=== PATIENT | female | born 1995 | race Caucasian/White ===

== ENCOUNTER 2018-10-08 13:05 | Emergency (ER) | payer OTHER ==
[~2018-10-08] VITALS: Ht 160 cm; Wt 74.6 kg
[~2018-10-08 13:05] MED LIST: AMOX/K CLA400 MG/5 M OR; AMOXICILLIN500 MG OR; AUGMENTIN875 MG OR; FLOXIN OTIC0.3 % OT; TRIAMINI4 OR; ZYRTEC10 MG OR
[2018-10-08 14:30] LABS: URINE BILIRUBIN - DIPSTICK NEGATIVE (NEGATIVE); URINE BLOOD DIPSTICK NEGATIVE (NEGATIVE); URINE COLOR YELLOW; URINE GLUCOSE - DIPSTICK NEGATIVE (NEGATIVE); URINE KETONE NEGATIVE (NEGATIVE); URINE LEUK ESTERASE NEGATIVE (NEGATIVE); URINE NITRITE - DIPSTICK NEGATIVE (Negative); URINE PH 7.5 (4.5-8.0); URINE PROTEIN - DIPSTICK NEGATIVE (NEG-TRACE); URINE SPECIFIC GRAVITY 1.015; URINE UROBILINOGEN - DIPSTICK 0.2 E.U./dL (0.2)
[2018-10-08 15:07] LABS: ALKALINE PHOSPHATASE 69 u/l (38-126); BILIRUBIN, TOTAL 0.4 mg/dL (0.0-1.4); BUN 9 mg/dL (7-17); BUN/CREATININE RATIO 12 (12-20 (CALC)); CHLORIDE 104 mmol/l (95-108); CREATININE 0.8 mg/dL (0.5-1.0); GFR > 60 ML/MIN (>=60 (CALC)); GFR FOR AFR.AMER. > 60 ML/MIN (>=60 (CALC)); LIPASE 49 u/l (23-300); SGOT/AST 44 u/l (14-36); SODIUM 140 mmol/l (137-146); TOTAL PROTEIN 7.5 g/dL (6.3-8.2)
[2018-10-08 15:11] LABS: ALBUMIN 4.7 g/dL (3.2-5.0); ANION GAP 14 (6-22 (CALC)); CARBON DIOXIDE 26 mmol/l (22-30); POTASSIUM 4.2 mmol/l (3.5-5.1)
[2018-10-08 15:27] LABS: HEMATOCRIT 40.6 % (37.0-47.0); HEMOGLOBIN 13.4 g/dl (12.0-16.0); IMMATURE GRANULOCYTES 0.2 % (0.0-5.0); MEAN CORPUSCULAR HGB 28.8 pG CALC (26.0-32.0); NEUT# 5.98 thou/uL (2.00-7.15); RED BLOOD COUNT 4.65 mill/uL (4.20-5.60); RED CELL DISTRI WIDTH 13.5 % (11.5-15.5)
[2018-10-08 15:29] LABS: MEAN CELL VOLUME 87.3 fL CALC (80.0-100.0)
[2018-10-08 16:51] VITALS: BP 129/82
[2018-10-08] MEDS ORDERED: ONDANSETRON4 MG PO (16:51)
[2018-10-08] MEDS ORDERED: RANITIDINE150 M1 PO (16:51)
== END 2018-10-08 17:01 | disposition home or self-care (01) | DRG 392 ==
LOC: ED 13:05
PROVIDERS: Family Medicine
DX: R10.13 Epigastric pain (principal); R07.89 Other chest pain; J45.909 Unspecified asthma, uncomplicated
CPT/HCPCS: Q9967

== ENCOUNTER 2019-06-22 | Emergency (ER) | payer OTHER ==
[~2019-06-22] MED LIST changes: +ONDANSETRON4 MG PO; +RANITIDINE150 M1 PO
[2019-06-22 14:16] LABS: URINE BILIRUBIN - DIPSTICK NEGATIVE (NEGATIVE); URINE BLOOD DIPSTICK NEGATIVE (NEGATIVE); URINE CLARITY CLEAR; URINE COLOR YELLOW; URINE GLUCOSE - DIPSTICK NEGATIVE (NEGATIVE); URINE KETONE NEGATIVE (NEGATIVE); URINE LEUK ESTERASE NEGATIVE (Negative); URINE NITRITE - DIPSTICK NEGATIVE (Negative); URINE PROTEIN - DIPSTICK NEGATIVE (NEG-TRACE); URINE SPECIFIC GRAVITY >=1.030
[2019-06-22] MEDS ORDERED: FLEXERIL PO (15:18)
[2019-06-22] MEDS ORDERED: IBUPROFEN600 MG PO (15:18)
== END 2019-06-22 15:55 | disposition home or self-care (01) | DRG 605 ==
DX: S00.03XA Contusion of scalp, initial encounter (principal); S39.012A Strain of muscle, fascia and tendon of lower back, initial encounter; S80.02XA Contusion of left knee, initial encounter; S93.401A Sprain of unspecified ligament of right ankle, initial encounter; S16.1XXA Strain of muscle, fascia and tendon at neck level, initial encounter; V48.0XXA Car driver injured in noncollision transport accident in nontraffic accident, initial encounter

== ENCOUNTER 2022-09-21 14:17 | Emergency (ER) | payer OTHER ==
[~2022-09-21] VITALS: Ht 160 cm; Wt 70.0 kg
[~2022-09-21 14:17] MED LIST changes: +FLEXERIL PO; +IBUPROFEN600 MG PO
[2022-09-21 14:31] VITALS: BP 106/69
[2022-09-21 14:56] LABS: BASO% 0.1 % (0-3); EOS% 0.2 % (0-8); HEMATOCRIT 35.5 % (37.0-47.0); HEMOGLOBIN 11.5 g/dl (12.0-16.0); IMMATURE GRANULOCYTES 0.7 % (0.0-5.0); LYMPH% 4.4 % (15-41); MEAN CELL VOLUME 82.4 fL CALC (80.0-100.0); MEAN CORPUSCULAR HGB 26.7 pG CALC (26.0-32.0); MEAN CORPUSCULAR HGB CONC 32.4 g/dL CAL (32.0-36.0); MONO% 2.8 % (2-13); NEUT# 13.08 thou/uL (2.00-7.15); NEUT% 91.8 % (42-76); RED BLOOD COUNT 4.31 mill/uL (4.20-5.60); RED CELL DISTRI WIDTH 12.2 % (11.5-15.5); URINE BILIRUBIN - DIPSTICK NEGATIVE (NEGATIVE); URINE BLOOD DIPSTICK NEGATIVE (NEGATIVE); URINE COLOR YELLOW; URINE GLUCOSE - DIPSTICK NEGATIVE (NEGATIVE); URINE KETONE 40 mg/dL (NEGATIVE); URINE LEUK ESTERASE NEGATIVE (NEGATIVE); URINE NITRITE - DIPSTICK NEGATIVE (Negative); URINE PH 6.5 (4.5-8.0); URINE PROTEIN - DIPSTICK NEGATIVE (NEG-TRACE); URINE UROBILINOGEN - DIPSTICK 0.2 E.U./dL (0.2)
[2022-09-21 15:08] LABS: ALBUMIN 3.8 g/dL (3.2-5.0); ALKALINE PHOSPHATASE 77 u/l (38-126); ANION GAP 9 (6-22 (CALC)); BILIRUBIN, TOTAL 0.3 mg/dL (0.02-1.3); BUN 7 mg/dL (7-17); BUN/CREATININE RATIO 17 (12-20 (CALC)); CARBON DIOXIDE 21 mmol/l (22-30); CHLORIDE 107 mmol/l (95-108); CREATININE 0.4 mg/dL (0.5-1.0); GFR FOR AFR.AMER. > 60 ML/MIN (>=60 (CALC)); GFR OTHER RACES > 60 ML/MIN (>=60 (CALC)); LIPASE 67 u/l (23-300); POTASSIUM 4.3 mmol/l (3.5-5.1); SGOT/AST 19 u/l (14-36); SODIUM 133 mmol/l (137-146); TOTAL PROTEIN 6.4 g/dL (6.3-8.2)
[2022-09-21 15:25] LABS: BETA-HCG, QUANT(RESULT NUMBER) 1971 mIU/mL
[2022-09-21 15:31] VITALS: BP 106/63
[2022-09-21 16:00] VITALS: BP 109/62
[2022-09-21 16:30] VITALS: BP 105/61
[2022-09-21] MEDS ORDERED: ZOFRAN4 MG/TAB PO (16:47)
[2022-09-21 17:18] VITALS: BP 105/61
== END 2022-09-21 17:30 | disposition home or self-care (01) ==
LOC: ED 14:17
PROVIDERS: Family Medicine
DX: O26.892 Other specified pregnancy related conditions, second trimester (principal); E86.0 Dehydration; R11.2 Nausea with vomiting, unspecified; R10.9 Unspecified abdominal pain; Z3A.26 26 weeks gestation of pregnancy

== ENCOUNTER 2023-11-30 22:04 | Emergency (ER) | payer OTHER ==
[~2023-11-30] VITALS: Ht 160 cm; Wt 55.0 kg
[~2023-11-30 22:04] MED LIST changes: +ZOFRAN4 MG/TAB PO
[2023-11-30 22:12] VITALS: BP 119/48
[2023-11-30 22:15] VITALS: BP 106/71
[2023-11-30] MEDS ORDERED: AMOXICILLIN500 MG PO (22:19)
[2023-11-30] MEDS ORDERED: AMOXICILLIN TRIHYDRATE 500 MG/CAP PO ONE (22:20)
[2023-11-30 22:30] VITALS: BP 104/52
[2023-11-30 22:45] VITALS: BP 111/69
[2023-11-30 22:57] VITALS: BP 104/52
== END 2023-11-30 22:57 | disposition home or self-care (01) ==
LOC: ED 22:04
DX: H66.92 Otitis media, unspecified, left ear (principal); H72.92 Unspecified perforation of tympanic membrane, left ear; J45.909 Unspecified asthma, uncomplicated

== ENCOUNTER 2024-04-29 13:41 | Emergency (ER) | payer OTHER ==
[~2024-04-29] VITALS: Ht 160 cm; Wt 72.5 kg
[~2024-04-29 13:41] MED LIST changes: +AMOXICILLIN500 MG PO
[2024-04-29 13:47] VITALS: BP 121/77
[2024-04-29 14:30] LABS: BASO% 0.2 % (0-3); EOS% 0.9 % (0-8); HEMATOCRIT 32.4 % (37.0-47.0); LYMPH% 36.1 % (15-41); MEAN CORPUSCULAR HGB 20.7 pG CALC (26.0-32.0); MEAN CORPUSCULAR HGB CONC 29.3 g/dL CAL (32.0-36.0); MONO% 8.2 % (2-13); NEUT# 2.34 thou/uL (2.00-7.15); NEUT% 54.6 % (42-76); RED BLOOD COUNT 4.6 mill/uL (4.20-5.60); RED CELL DISTRI WIDTH 18.6 % (11.5-15.5)
[2024-04-29 14:31] LABS: HEMOGLOBIN 9.5 g/dl (12.0-16.0); MEAN CELL VOLUME 70.4 fL CALC (80.0-100.0)
[2024-04-29 14:37] VITALS: BP 108/69
[2024-04-29 14:54] LABS: URINE BILIRUBIN - DIPSTICK Negative (NEGATIVE); URINE BLOOD DIPSTICK Negative (NEGATIVE); URINE GLUCOSE - DIPSTICK Negative (NEGATIVE); URINE KETONE Negative (NEGATIVE); URINE LEUK ESTERASE Negative (NEGATIVE); URINE NITRITE - DIPSTICK Negative (Negative); URINE PH 7.5 (4.5-8.0); URINE PROTEIN - DIPSTICK Negative (NEG-TRACE)
[2024-04-29 14:57] LABS: URINE COLOR Yellow
[2024-04-29 14:58] LABS: BILIRUBIN, TOTAL 0.4 mg/dL (0.02-1.3); CREATININE 0.7 mg/dL (0.5-1.0); POTASSIUM 4.3 mmol/l (3.5-5.1); TOTAL PROTEIN 7.5 g/dL (6.3-8.2)
[2024-04-29 15:03] LABS: ALBUMIN 4.6 g/dL (3.2-5.0)
[2024-04-29 15:44] VITALS: BP 114/69
[2024-04-29 16:00] VITALS: BP 108/64
[2024-04-29] MEDS ORDERED: DULCOLAX10 MG RE (16:19)
[2024-04-29 16:30] VITALS: BP 108/64
== END 2024-04-29 16:30 | disposition home or self-care (01) ==
LOC: ED 13:41
PROVIDERS: Family Medicine
DX: K59.00 Constipation, unspecified (principal); J45.909 Unspecified asthma, uncomplicated
CPT/HCPCS: Q9967